=== PATIENT | male | born 1970 | race African-American/Black ===

== ENCOUNTER 2018-01-06 15:08 | Emergency (ER) | payer OTHER ==
[~2018-01-06] VITALS: Ht 167.6 cm; Wt 120.2 kg
[~2018-01-06 15:08] MED LIST: LISINOPRIL40 MG PO; NIFEDICAL XL60 MG PO; NORCO 5-325 TA1 EACH PO
[2018-01-06 16:02] LABS: CALCIUM 9.2 mg/dL (8.5-10.1); CREATININE 1.6 mg/dL (0.7-1.3); POTASSIUM 3.4 mmol/L (3.5-5.1)
[2018-01-06 16:05] LABS: URIC ACID* 7.9 mg/dL (2.6-7.2)
[2018-01-06] MEDS ORDERED: HYDROCODONE-AP1 EAC6 PO (16:11)
[2018-01-06] MEDS ORDERED: INDOMETHACIN 5050 M1 PO (16:11)
[2018-01-06 16:15] LABS: ABSOLUTE NEUTROPHILS 8.8 thou/uL (1.4-8.2); BASOPHILS 0.3 % (0.0-2.0); EOSINOPHILS 0.1 % (0.0-3.0); HEMATOCRIT 44.2 % (42.0-52.0); HEMOGLOBIN 15.4 gm/dL (14.0-18.0); LYMPHOCYTES 6.4 % (24.0-44.0); MCH 32.3 pg (26.0-34.0); MCHC 34.7 g/dL (28.0-37.0); PLATELET COUNT 243 thou/uL (150-400); POLYS 84.2 % (36.0-66.0); RBC 4.76 mil/uL (4.50-6.00); RDW 12.1 % (10.5-14.5); WBC 10.5 thou/uL (4.0-11.0)
[2018-01-06 16:33] VITALS: BP 193/94
== END 2018-01-06 16:36 | disposition home or self-care (01) ==
LOC: ER 15:08
PROVIDERS: Physician Assistant
DX: M10.072 Idiopathic gout, left ankle and foot (principal); I10 Essential (primary) hypertension

== ENCOUNTER 2018-08-18 09:09 | Emergency (ER) | payer OTHER ==
[~2018-08-18] VITALS: Ht 167.6 cm; Wt 113.4 kg
[~2018-08-18 09:09] MED LIST changes: +HYDROCODONE-AP1 EAC6 PO; +INDOMETHACIN 5050 M1 PO
[2018-08-18 09:44] LABS: ABSOLUTE NEUTROPHILS 8.3 thou/uL (1.4-8.2); BASOPHILS 0.4 % (0.0-2.0); EOSINOPHILS 0.9 % (0.0-3.0); HEMATOCRIT 41.3 % (42.0-52.0); HEMOGLOBIN 14.2 gm/dL (14.0-18.0); LYMPHOCYTES 14.9 % (24.0-44.0); MCH 32.4 pg (26.0-34.0); MCHC 34.4 g/dL (28.0-37.0); MCV 94.3 fL (80.0-100.0); PLATELET COUNT 322 thou/uL (150-400); POLYS 73.8 % (36.0-66.0); RBC 4.38 mil/uL (4.50-6.00); RDW 12.7 % (10.5-14.5); WBC 11.2 thou/uL (4.0-11.0)
[2018-08-18 09:51] LABS: CREATININE 1.2 mg/dL (0.7-1.3); POTASSIUM 3.9 mmol/L (3.5-5.1)
[2018-08-18 10:11] LABS: APTT 26.4 Seconds (24.5-32.8)
[2018-08-18] MEDS ORDERED: NORVASC5 MG PO (11:44)
[2018-08-18 12:55] VITALS: BP 161/97
== END 2018-08-18 13:12 | disposition home or self-care (01) ==
LOC: ER 09:09
PROVIDERS: Emergency Medicine
DX: R04.0 Epistaxis (principal); I16.0 Hypertensive urgency

== ENCOUNTER 2018-08-19 12:46 | Emergency (ER) | payer OTHER ==
[~2018-08-19] VITALS: Ht 167.6 cm; Wt 113.4 kg
[~2018-08-19 12:46] MED LIST changes: +NORVASC5 MG PO
[2018-08-19 15:45] VITALS: BP 168/97
== END 2018-08-19 15:56 | disposition home or self-care (01) ==
LOC: ER 12:46
DX: R04.0 Epistaxis (principal); I10 Essential (primary) hypertension